=== PATIENT | female | born 1940 | race Caucasian/White ===

== ENCOUNTER → 2021-01-09 | Outpatient (CLI) | payer MEDICARE | LOC: RAD 15:19 | DX: M11.20 Other chondrocalcinosis, unspecified site (principal); M79.643 Pain in unspecified hand; G89.29 Other chronic pain; M19.042 Primary osteoarthritis, left hand; M19.041 Primary osteoarthritis, right hand | CPT/HCPCS: 73130 ==

== ENCOUNTER → 2021-04-06 | Outpatient (CLI) | payer MEDICARE | LOC: EMI 04-05 13:45 | DX: M48.02 Spinal stenosis, cervical region (principal); M48.061 Spinal stenosis, lumbar region without neurogenic claudication; M51.36 Other intervertebral disc degeneration, lumbar region; M25.78 Osteophyte, vertebrae; M50.322 Other cervical disc degeneration at C5-C6 level; R90.89 Other abnormal findings on diagnostic imaging of central nervous system | CPT/HCPCS: 72141; 72148 ==